=== PATIENT | male | born 1950 | race Caucasian/White ===

== ENCOUNTER 2024-03-29 14:56 | Emergency (ER) | payer OTHER ==
--- NOTE | 2024-03-29 17:53 | RAD REPORT ---
EXAM: C Spine Wo Con HISTORY: PAIN COMPARISON: None TECHNIQUE: Multiple contiguous axial images were obtained in a CT of the cervical spine without IV co ntrast. Sagittal and coronal reformats were performed. One or more of the following dose reduction techniques were used: Automated exposure control, adjustment of the mA and kV according to patient si ze, and iterative reconstruction. Unless otherwise specified, incidental findings do not require dedicated imaging follow-up. FINDINGS: The vertebral bodies and intervertebral discs demonstrate normal height and alignment without fractur e or subluxation. Endplate and facet degenerative changes most pronounced at C3-4 where there is suggestion of moderate central canal stenosis. No prevertebral soft tissue swelling is seen. The posterior facets are well aligned. Normal alignment of the skull base with the cervical spine is seen. Findings of diffuse idiopathic skeletal hyperostosis. The lung apices are unremarkable. The cervical soft tissues are unremarkable. IMPRESSION: No evidence of acute osseous abnormality of the cervical spine. Findings of diffuse idiopathic skelet al hyperostosis. Degenerative changes with suggestion of moderate central canal stenosis at C3-4.
--- NOTE | 2024-03-29 17:56 | EDPHYS ---
Physician Documentation [facility] Name: Violet Guzmán Age: 74 yrs Sex: Male : 1950 Arrival Date: 03/29/2024 Time: 14:56 Bed 8 Private MD: ED Physician Williams Mejia HPI: 03/29 16:16 This 74 yrs old Male presents to ER via Wheelchair with complaints of Fall Injury, Neck rn Problem. 16:16 Details of fall: The patient fell from an upright position. rn 16:17 Onset: The symptoms/episode began/occurred 5 day(s) ago. Associated injuries: The rn patient sustained neck injury. Severity of symptoms: At their worst the symptoms were mild, in the emergency department the symptoms are unchanged. The patient has not experienced similar symptoms in the past. Patient reports fall, fell forward and struck nose, has been having bilateral neck pain since then. Denies blood thinners. No LOC. Denies any other injury. Reports came to make sure he did not break his neck. No trouble swallowing or breathing. No anterior neck pain.. Historical: - Allergies: 15:25 No Known Allergies; tm6 - PMHx: 15:25 BPH; Gout; Hypertensive disorder; Tachycardia; Hypercholesterolemia; neuropathy; tm6 - PSHx: 15:25 None; tm6 - Immunization history:: Client reports receiving the 2nd dose of the Covid vaccine. - Infectious Disease History:: Denies. - Social history:: Smoking status: Reported history of juuling and/or vaping. Patient/guardian denies using tobacco, the patient reports quitting approximately 1 years ago, Patient/guardian denies using alcohol, the patient reports quitting approximately .12 years ago. - Family history:: not pertinent. - Hospitalizations: : No recent hospitalization is reported. ROS: 16:17 Constitutional: Negative for fever, chills, and weight loss, Neck: Positive for neck rn pain Cardiovascular: Negative for chest pain, palpitations, and edema, Respiratory: Negative for shortness of breath, cough, wheezing, and pleuritic chest pain, Abdomen/GI: Negative for abdominal pain, nausea, vomiting, diarrhea, and constipation, Back: Negative for injury and pain, MS/Extremity: Negative for injury and deformity, Skin: Negative for injury, rash, and discoloration, Neuro: Negative for headache, weakness, numbness, tingling, and seizure, Exam: 16:17 Constitutional: This is a well developed, well nourished patient who is awake, alert, rn and in no acute distress. Head/Face: Normocephalic, atraumatic. Neck: No midline cervical tenderness Neuro: Awake and alert, GCS 15, oriented to person, place, time, and situation. Vital Signs: 15:24 BP 141 / 76; Pulse 97; Resp 19; Temp 97.3(TE); Pulse Ox 98% on R/A; MAP 95 mmHg; Weight tm6 102.06 kg; Height 6 ft. 0 in. ; Pain 10/10; 18:18 BP 138 / 75; Pulse 88; Resp 16; Pulse Ox 99% ; bp 15:24 Body Mass Index 30.52 (102.06 kg, 182.88 cm) tm6 15:24 Pain Scale: Adult tm6 MDM: 15:22 Medical Screening Exam initiated rn 17:55 Differential diagnosis: contusion, fracture, sprain, strain. Data reviewed: vital rn signs, nurses notes, radiologic studies, CT scan, and as a result, I will discharge patient. Counseling: I had a detailed discussion with the patient and/or guardian regarding the historical points, exam findings, and any diagnostic results supporting the discharge/admit diagnosis, radiology results, the need for outpatient follow up, to return to the emergency department if symptoms worsen or persist or if there are any questions or concerns that arise at home. Special discussion: I discussed with the patient/guardian in detail that at this point there is no indication for admission to the hospital. It is understood, however, that if the symptoms persist or worsen the patient needs to return immediately for re-evaluation. ED course: I have personally reviewed all of the results, including but not limited to imaging deemed necessary to safely discharge this patient at this time. All results given to and printed out for patient. I personally went over all the results with the patient and answered all questions. Patient will follow-up with PCP and or specialist as discussed. Return precautions given and understood.. 03/29 15:54 Order name: CT C Spine; Complete Time: 17:54 rn Administered Medications: No medications were administered Disposition Summary: 03/29/24 17:56 Discharge Ordered Notes: Location: Home rn Problem: new rn Symptoms: have improved rn Condition: Stable rn Diagnosis - Strain of muscle, fascia and tendon at neck level, initial encounter rn Followup: rn - With: Private Physician - When: As needed - Reason: Recheck today's complaints, Re-evaluation by your physician Discharge Instructions: - Discharge Summary Sheet rn - Cervical Strain and Sprain Rehab-[facility] rn Forms: - Medication Reconciliation Form rn - Antibiotic r d intern - Prescription Opioid Use rn - Patient Portal Instructions rn - Leadership Thank You Letter rn Signatures: Dispatcher [employer] Williams Munoz MD MD rn Zia Gonzalez RN RN tm6 Corrections: (The following items were deleted from the chart) 15:54 15:54 C Spine Wo Con+CT.RAD.BRZ ordered. EDFL DAVIDFL
--- NOTE | 2024-03-29 17:56 | ER ---
Nurse's Notes [facility] Name: Violet Guzmán Age: 74 yrs Sex: Male : 1950 Arrival Date: 03/29/2024 Time: 14:56 Bed 8 Private MD: Diagnosis: Strain of muscle, fascia and tendon at neck level, initial encounter Presentation: 03/29 15:24 Chief complaint: Patient states: I fell last , not sure how. I've had neck pain tm6 ever since. Coronavirus screen: Client denies travel out of the [place] in the last 14 days. Ebola Screen: Patient negative for fever greater than or equal to 101.5 degrees Fahrenheit, and additional compatible Ebola Virus Disease symptoms Patient denies exposure to infectious person. Patient denies travel to an Ebola-affected area in the 21 days before illness onset. No symptoms or risks identified at this time. Initial Sepsis Screen: Does the patient meet any 2 criteria? No. Patient's initial sepsis screen is negative. Does the patient have a suspected source of infection? No. Patient's initial sepsis screen is negative. Risk Assessment: Do you want to hurt yourself or someone else? Patient reports no desire to harm self or others. Onset of symptoms was March 26, 2024. 15:24 Method Of Arrival: Wheelchair tm6 15:24 Acuity: LEIZABETH 4 tm6 Triage Assessment: 15:25 General: Appears uncomfortable, Behavior is calm, cooperative. Pain: Complains of pain tm6 in neck Pain currently is 10 out of 10 on a pain scale. EENT: No signs and/or symptoms were reported regarding the EENT system. Neuro: Level of Consciousness is awake, alert, obeys commands, Oriented to person, place, time, situation. Cardiovascular: Patient's skin is warm and dry. Respiratory: Airway is patent Respiratory effort is even, unlabored, Respiratory pattern is regular, symmetrical. GI: No signs and/or symptoms were reported involving the gastrointestinal system. Abdomen is flat, non-distended. : No signs and/or symptoms were reported regarding the genitourinary system. Derm: No signs and/or symptoms reported regarding the dermatologic system. Musculoskeletal: Reports pain in neck since Friday. Pain is 10 out of 10 on a pain scale. Historical: - Allergies: 15:25 No Known Allergies; tm6 - PMHx: 15:25 BPH; Gout; Hypertensive disorder; Tachycardia; Hypercholesterolemia; neuropathy; tm6 - PSHx: 15:25 None; tm6 - Immunization history:: Client reports receiving the 2nd dose of the Covid vaccine. - Infectious Disease History:: Denies. - Social history:: Smoking status: Reported history of juuling and/or vaping. Patient/guardian denies using tobacco, the patient reports quitting approximately 1 years ago, Patient/guardian denies using alcohol, the patient reports quitting approximately .12 years ago. - Family history:: not pertinent. - Hospitalizations: : No recent hospitalization is reported. Screenin:30 [place] ED Fall Risk Assessment (Adult) History of falling in the last 3 months, bp including since admission Yes- single mechanical fall (1 pt) Confusion or Disorientation No (0 pts) Intoxicated or Sedated No (0 pts) Impaired Gait No (0 pts) Mobility Assist Device Used No (0 pt) Altered Elimination No (0 pt) Score/Fall Risk Level 0 - 2 = Low Risk. Abuse screen: Denies threats or abuse. Denies injuries from another. Nutritional screening: No deficits noted. Tuberculosis screening: No symptoms or risk factors identified. Assessment: 15:30 General: Appears in no apparent distress. uncomfortable, Behavior is appropriate for bp age. Pain: Complains of pain in neck. Neuro: Level of Consciousness is awake, alert, obeys commands, Oriented to Appropriate for age. Cardiovascular: No deficits noted. Respiratory: No deficits noted. GI: No signs and/or symptoms were reported involving the gastrointestinal system. : No signs and/or symptoms were reported regarding the genitourinary system. EENT: No deficits noted. Derm: No deficits noted. Musculoskeletal: No deficits noted. 18:18 Reassessment: PT D/C HOME AMBULATORY WITH FAMILY. REFUSING TO WAIT FOR D/C PAPERS. bp Vital Signs: 15:24 BP 141 / 76; Pulse 97; Resp 19; Temp 97.3(TE); Pulse Ox 98% on R/A; MAP 95 mmHg; Weight tm6 102.06 kg; Height 6 ft. 0 in. ; Pain 10/10; 18:18 BP 138 / 75; Pulse 88; Resp 16; Pulse Ox 99% ; bp 15:24 Body Mass Index 30.52 (102.06 kg, 182.88 cm) tm6 15:24 Pain Scale: Adult tm6 ED Course: 15:00 Patient arrived in ED. mr 15:16 Damir Kapadia, RN is Primary Nurse. bp 15:21 Williams Mejia MD is Attending Physician. rn 15:25 Triage completed. tm6 15:25 Arm band placed on right wrist. tm6 15:30 Patient has correct armband on for positive identification. bp 16:14 CT C Spine In Process Unspecified. EDMS 18:18 Provided Education on: N/A. bp 18:18 No provider procedures requiring assistance completed. Patient did not have IV access bp during this emergency room visit. Administered Medications: No medications were administered Medication: 18:18 VIS not applicable for this client. bp Outcome: 17:56 Discharge ordered by . rn 18:18 Discharged to home ambulatory, with family, bp 18:18 Condition: stable 18:18 Discharge instructions given to patient, Instructed on discharge instructions, follow up and referral plans. Demonstrated understanding of instructions, follow-up care, 18:19 Patient left the ED. bp Signatures: Dispatcher [employer] EDOH Marla Langston, Reg Reg Williams Mejia MD MD rn Peltier, Brian, RN RN bp Zia Gonzalez RN RN tm6
[2024-03-29 21:19] VITALS: TEMP 97.3
[2024-03-29 21:22] VITALS: BP 138/75; O2SAT 99
== END 2024-03-29 18:19 | disposition home or self-care (01) ==
LOC: ER 14:56
DX: S16.1XXA Strain of muscle, fascia and tendon at neck level, initial encounter (principal)
CPT/HCPCS: 72125; 99282